=== PATIENT | female | born 1990 | race Caucasian/White ===

== ENCOUNTER 2017-03-10 02:39 | Emergency (ER) | payer OTHER ==
[~2017-03-10] VITALS: Ht 162.6 cm; Wt 49.8 kg
[2017-03-10 02:43] VITALS: TEMP 36.7; Ht 162.6 cm; Wt 49.8 kg
[2017-03-10 02:51] VITALS: O2SAT 99
[2017-03-10] MEDS ORDERED: BCPILLS PO (03:17)
[2017-03-10] MEDS ORDERED: FOLI1TAB7 PO (03:17)
[2017-03-10 03:36] LABS: BASO % 0.4 %; BASO ABS # 0.05 K/uL (0-0.2); EOS % 2.5 %; HEMATOCRIT 31.3 % (37-47); IG% 0.3 %; LYMPH % 37.6 %; LYMPH ABS # 4.26 K/uL (1.2-3.4); MEAN CORPUSCULAR HEMOGLOBIN 20.8 pg (25-34); MEAN CORPUSCULAR HGB CONC 33.5 g/dl (32-36); MEAN PLATELET VOLUME 10.4 fL (7.4-10.4); MONO % 6.6 %; NEUT % 52.6 %; PLATELET COUNT 344 K/uL (130-400); RED BLOOD COUNT 5.05 M/uL (4.2-5.4); WHITE BLOOD COUNT 11.34 K/uL (4.8-10.8)
[2017-03-10 03:46] LABS: PARTIAL THROMBOPLASTIN RATIO 1.1; PROTHROMBIN TIME (PATIENT) 10.7 SECONDS (9.0-12.0)
[2017-03-10 03:47] LABS: BUN/CREATININE RATIO 23.9 (10-20); CALCIUM 9.1 mg/dl (8.5-10.1); CREATININE 0.65 mg/dl (0.60-1.20); POTASSIUM 3.9 mmol/L (3.5-5.1)
[2017-03-10 03:58] LABS: ALB/GLOB RATIO 1.1 (0.9-2); THYROID STIMULATING HORMONE 5.05 uIu/ml (0.300-4.500)
[2017-03-10 04:03] LABS: POINT OF CARE TROPONIN I < 0.030 ng/ml (0-0.045)
[2017-03-10 04:08] LABS: COMPLETE YES; OVALOCYTES 1+; SCHISTOCYTES 1+
--- NOTE | 2017-03-10 04:24 | EMERGENCY ROOM VISIT NOTE ---
History First contact with patient: 02:53 Chief Complaint: CHEST PAIN Stated Complaint: CHEST PAIN,NAUSEA,PALP,LEFT ARM PAIN Nursing Triage Summary: Sigrid presents with a c/c of left sided chest pain radiating to back and left arm. negative SOB. Positive nausea. Patient reports this woke her from sleep. Patient denies any cardiac history. History of Present Illness The patient is a 27 year old female who presents to the Emergency Room with complaints of left-sided chest pain which woke her up from sleep approximately 45 minutes ago. The patient states that she developed pain in the left side of the chest with radiation into the back and left arm. She reports she had associated nausea without vomiting. She also reports palpitations, but states that she took her heart rate and it was normal. The patient has had a few other episodes of similar symptoms recently and did see her primary care provider, [facility], who told her that this was likely due to anxiety. She does admit to increased stress recently. She denies cardiac history. She takes control pills, but does not smoke. She denies recent travel. Her symptoms have completely resolved at this time. Review of Systems A complete 10 point review of systems was reviewed with the patient with pertinent positives and negatives as per history of present illness. All else were negative. Social History Smoking Status: Never Smoker Current/Historical Medications Scheduled Control Pills ( Control Pills), 1 TAB PO DAILY Folic Acid (Folvite), 1 MG PO DAILY Physical Exam Vital Signs Date Time Temp Pulse Resp B/P (MAP) Pulse Ox O2 Delivery O2 Flow Rate FiO2 03/10/17 04:51 69 21 98 03/10/17 04:36 72 15 97 03/10/17 04:31 104/69 03/10/17 04:09 63 14 97 03/10/17 04:01 104/70 03/10/17 03:39 74 18 97 03/10/17 03:31 104/70 03/10/17 03:09 82 18 96 03/10/17 03:01 117/70 03/10/17 02:58 97 Room Air 03/10/17 02:54 67 03/10/17 02:52 123/87 03/10/17 02:51 99 Room Air 03/10/17 02:43 36.7 80 18 111/77 100 Room Air Physical Exam VITALS: Vitals are noted on the nurse's note and reviewed by myself. Vital signs stable. GENERAL: This is a 27-year-old female, in no acute distress, nondiaphoretic, well-developed well-nourished. HEENT: PERRLA. EOMI. Mucous membranes moist. Neck is supple without nuchal rigidity. HEART: Regular rate and rhythm without murmurs gallops or rubs. LUNGS: Clear to auscultation bilaterally without wheezes, rales or rhonchi. ABDOMEN: Positive bowel sounds x 4. Soft, nontender to palpation. NEURO: Patient was alert and oriented to person place and time. Medical Decision & Procedures ER Provider Diagnostic Interpretation: CHEST X-RAY: No acute cardiopulmonary findings. Laboratory Results 03/10/17 03:00 Red Blood Count 5.05, Mean Corpuscular Volume 62.0, Mean Corpuscular Hemoglobin 20.8, Mean Corpuscular Hemoglobin Concent 33.5, Mean Platelet Volume 10.4, Neutrophils (%) (Auto) 52.6, Lymphocytes (%) (Auto) 37.6, Monocytes (%) (Auto) 6.6, Eosinophils (%) (Auto) 2.5, Basophils (%) (Auto) 0.4, Neutrophils # (Auto) 5.97, Lymphocytes # (Auto) 4.26, Monocytes # (Auto) 0.75, Eosinophils # (Auto) 0.28, Basophils # (Auto) 0.05 03/10/17 03:00 Test 03/10/17 03:00 03/10/17 03:43 White Blood Count 11.34 K/uL (4.8-10.8) Red Blood Count 5.05 M/uL (4.2-5.4) Hemoglobin 10.5 g/dL (12.0-16.0) Hematocrit 31.3 % (37-47) Mean Corpuscular Volume 62.0 fL (80-100) Mean Corpuscular Hemoglobin 20.8 pg (25-34) Mean Corpuscular Hemoglobin Concent 33.5 g/dl (32-36) Platelet Count 344 K/uL (130-400) Mean Platelet Volume 10.4 fL (7.4-10.4) Neutrophils (%) (Auto) 52.6 % Lymphocytes (%) (Auto) 37.6 % Monocytes (%) (Auto) 6.6 % Eosinophils (%) (Auto) 2.5 % Basophils (%) (Auto) 0.4 % Neutrophils # (Auto) 5.97 K/uL (1.4-6.5) Lymphocytes # (Auto) 4.26 K/uL (1.2-3.4) Monocytes # (Auto) 0.75 K/uL (0.11-0.59) Eosinophils # (Auto) 0.28 K/uL (0-0.5) Basophils # (Auto) 0.05 K/uL (0-0.2) RDW Standard Deviation 33.1 fL (36.4-46.3) RDW Coefficient of Variation 14.9 % (11.5-14.5) Immature Granulocyte % (Auto) 0.3 % Immature Granulocyte # (Auto) 0.03 K/uL (0.00-0.02) Ovalocytes 1+ Schistocytes 1+ Prothrombin Time 10.7 SECONDS (9.0-12.0) Prothromb Time International Ratio 1.0 (0.9-1.1) Activated Partial Thromboplast Time 27.8 SECONDS (21.0-31.0) Partial Thromboplastin Ratio 1.1 Anion Gap 6.0 mmol/L (3-11) Est Creatinine Clear Calc Drug Dose 103.1 ml/min Estimated GFR () 142.0 Estimated GFR (Non- 122.5 BUN/Creatinine Ratio 23.9 (10-20) Calcium Level 9.1 mg/dl (8.5-10.1) Total Bilirubin 0.5 mg/dl (0.2-1) Aspartate Amino Transf (AST/SGOT) 24 U/L (15-37) Alanine Aminotransferase (ALT/SGPT) 37 U/L (12-78) Alkaline Phosphatase 71 U/L (45-117) Total Protein 7.8 gm/dl (6.4-8.2) Albumin 4.0 gm/dl (3.4-5.0) Globulin 3.8 gm/dl (2.5-4.0) Albumin/Globulin Ratio 1.1 (0.9-2) Thyroid Stimulating Hormone (TSH) 5.050 uIu/ml (0.300-4.500) Bedside D-Dimer 233 ng/mlFEU (0-450) Bedside Troponin I < 0.030 ng/ml (0-0.045) ECG Indication: chest pain Rate (beats per minute): 67 Rhythm: normal sinus Findings: no acute ischemic change, no ectopy Comparison ECG Date: no prior available Medical Decision Differential diagnosis includes acute coronary syndrome, pulmonary embolism, pneumothorax, pericarditis, myocarditis, endocarditis, anxiety, musculoskeletal pain, GERD, costochondritis, pneumonia, among others. The patient is a 27-year-old female who presents today complaining of left sided chest pain. Labs revealed a mild leukocytosis likely secondary to stress. Patient does have a mild anemia consistent with her reported history of thalassemia minor. No concerning electrolyte abnormalities. Troponin was not elevated. D-dimer was not elevated. EKG shows a normal sinus rhythm. Chest x-ray was unremarkable. Patient's symptoms may be secondary to anxiety, as she does admit she has had increased stress recently. She was advised to follow-up with [facility] regarding these symptoms. She will return here for any new/concerning symptoms. She verbalized understanding of my assessment and treatment plan was discharged home in good condition. Medication Reconcilliation Current Medication List: was personally reviewed by me Blood Pressure Screening Patient's blood pressure: Normal blood pressure Impression Primary Impression: Left sided chest pain Departure Information Dispostion Home / Self-Care Condition GOOD Referrals No Doctor, Assigned (PCP) Patient Instructions My [facility] Additional Instructions You have been treated in the Emergency Department for your Non-Cardiac Chest Pain. Laboratory results and Imaging Studies have ruled out any cardiac or pulmonary cause of your chest pain. For pain control, you can use the following [id number] medicines (if >12 yo): - Regular strength (325mg/tab) Tylenol (acetaminophen) 2 tabs every 4-6 hours as needed. Do not exceed 12 tablets in a 24 hour period. Avoid taking more than 4 grams (4000 mg) of Tylenol per day. This includes any other sources of acetaminophen you may take on a regular basis. - Regular strength (200 mg/tab) Advil (ibuprofen) 1-2 tabs every 4-6 hours as needed. Do not exceed a dose of 3200 mg per day. You should schedule a follow-up appointment with [facility] in 2 -3 days for further evaluation from today's Emergency Department visit. Return to the Emergency Department if your current symptoms worsen despite treatment course outlined above, or if you develop any of the following symptoms : worsening chest pain, associated jaw/arm pain, nausea, dizziness, shortness of breath, bloody cough, or fainting.
[2017-03-10 04:31] VITALS: BP 104/69
[2017-03-10 04:51] VITALS: PULSE 69; O2SAT 98
--- NOTE | 2017-03-10 07:29 | DIAGNOSTIC IMAGING REPORT ---
CHEST ONE VIEW PORTABLE HISTORY: Atypical chest pain COMPARISON: None. FINDINGS: The lungs are clear. Cardiac silhouette is normal in size. No pleural effusions. No pneumothorax. IMPRESSION: No acute process. Electronically signed by: Gio Morejon M.D. 03/10/2017 7:28 AM Dictated Date/Time: 03/10/2017 7:27 AM
== END 2017-03-10 05:04 | disposition home or self-care (01) ==
LOC: C.EDB 02:41 → C.EDA 05:04
DX: R07.9 Chest pain, unspecified (principal)